=== PATIENT | female | born 1965 | race Caucasian/White ===

== ENCOUNTER → 2023-05-07 09:27 | Outpatient (CLI) | payer OTHER, SELFPAY ==
--- NOTE | 2023-05-07 09:32 | DI.MRI.S_ITS ---
PROCEDURE: MR WRIST RT WO CON INDICATIONS: FRACTURE OF RIGHT WRIST TECHNIQUE: Noncontrast coronal proton density fast spin echo and T2 fast spin echo with fat saturation; coronal 3-D gradient echo, axial T1 spin echo and T2 fast spin echo with fat saturation, sagittal T1 spin echo through the wrist. COMPARISON: [facility], CR, XR WRIST 3+ VIEWS RIGHT, 04/16/2023, 17:31. [facility], CR, XR WRIST 3+ VIEWS RIGHT, 04/27/2023, 14:14. FINDINGS: Image quality: Excellent. Bones and cartilage: The carpal bones are normally aligned. No bone marrow contusions or acute fractures. Small ossification is seen adjacent to the ulnar styloid tip, compatible with a remote prior injury. No evidence for avascular necrosis. Subchondral cystic changes and edema are seen within the proximal lateral aspect of the lunate and the proximal triquetrum. There is neutral ulnar variance. There are changes are seen at the 1st carpometacarpal and 1st metacarpophalangeal joints as well as the triscaphe and radiocarpal articulations. Carpal ligaments: The scapholunate and lunotriquetral ligaments appear intact. On sagittal images, the pisohamate ligament appears intact. Triangular fibrocartilage complex: There is irregularity of the central triangular fibrocartilage disc and suspected focal full-thickness tearing. Probable remote prior osseous avulsion of the ulnar styloid attachment. Tendons and soft tissues: Mild thickening of the median nerve with increased T2-weighted signal and volar bowing of the flexor retinaculum. The carpal tunnel structures otherwise appear normal. The ulnar nerve appears normal within Guyon's canal. All six extensor tendon compartments demonstrate normal morphology, without pathologic tendon sheath fluid. No significant soft tissue ganglion cysts. IMPRESSION: 1. No acute osseous fracture. Scaphoid is intact. 2. Suspected focal full-thickness tearing of the central triangular fibrocartilage disc. Remote prior osseous avulsion of the ulnar styloid attachment without osseous edema. 3. Subchondral cystic changes and edema within the proximal lunate and triquetrum. 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 4. Mild thickening and increased signal within the median nerve are nonspecific but can be seen in the setting of median neuritis. Recommend clinical correlation for carpal tunnel syndrome. Approved by: Clayton Joe M.D. on 05/09/2023 at 10:28
== END ==
PROVIDERS: Referring Provider Physician Assistant; Visit Provider Physician Assistant
DX: S62.001A Unspecified fracture of navicular [scaphoid] bone of right wrist, initial encounter for closed fracture (principal); R60.0 Localized edema; X58.XXXA Exposure to other specified factors, initial encounter
CPT/HCPCS: 73221